=== PATIENT | male | born 1985 | race Two or more races ===

== ENCOUNTER 2016-12-12 14:13 | Emergency (ER) | payer BC ==
[2016-12-12 14:20] VITALS: BP 141/85
--- NOTE | 2016-12-12 14:59 | RAD ---
Indication injury. Pain. AP oblique and lateral views of the right ankle were obtained. There is soft tissue swelling over the lateral malleolus. No bony abnormality is seen.
[2016-12-12] MEDS ORDERED: NAPR500T8 PO (15:12)
--- NOTE | 2016-12-12 15:12 | PHYS DOC ---
Past Medical History Past Medical History: No Pertinent History Past Surgical History: No Surgical History Alcohol Use: Occasionally Drug Use: None Adult General Chief Complaint Chief Complaint: ANKLE PROBLEM HPI HPI Patient is a 31 year old male with no significant medical history who presents today with right ankle pain that began yesterday after he rolled his ankle getting off a ladder. Review of Systems Review of Systems Constitutional: Denies fever or chills [] Eyes: Denies change in visual acuity, redness, or eye pain [] Musculoskeletal: Right ankle pain Integument: Denies rash or skin lesions [] Neurologic: Denies headache, focal weakness or sensory changes [] Endocrine: Denies polyuria or polydipsia [] Allergies Allergies Allergies Coded Allergies Type Severity Reaction Last Updated Verified No Known Drug Allergies 12/12/16 No Physical Exam Physical Exam Constitutional: Well developed, well nourished, no acute distress, non-toxic appearance. [] HENT: Normocephalic, atraumatic, bilateral external ears normal, oropharynx moist, no oral exudates, nose normal. [] Eyes: PERRLA, EOMI, conjunctiva normal, no discharge. [] Skin: Warm, dry, no erythema, no rash. [] Back: No tenderness, no CVA tenderness. [] Extremities: Right ankle with mild amount of soft tissue swelling on the right lateral aspect. Full range of motion to the right ankle. Adequate sensation to the right ankle. +2 right pedal pulse. Cap refill less than 2 seconds the right lower extremity. Sensation intact to the right lower extremity. Neurologic: Alert and oriented X 3, normal motor function, normal sensory function, no focal deficits noted. [] Psychologic: Affect normal, judgement normal, mood normal. [] Current Patient Data Vital Signs Vital Signs Date Time Temp Pulse Resp B/P (MAP) Pulse Ox O2 Delivery O2 Flow Rate FiO2 12/12/16 14:20 98.3 90 16 100 Room Air 98.3 EKG EKG [] Radiology/Procedures Radiology/Procedures []PROCEDURE: ANKLE RIGHT 3V Indication injury. Pain. AP oblique and lateral views of the right ankle were obtained. There is soft tissue swelling over the lateral malleolus. No bony abnormality is seen. DICTATED and SIGNED BY: HSANNON ROONEY MD DATE: 12/12/16 3098 CC: CONNER TORRES APRN ~ Course & Med Decision Making Course & Med Decision Making Pertinent Labs and Imaging studies reviewed. (See chart for details) Patient is in the ED right ankle pain after rolling it yesterday. Right ankle x- rays interpreted by radiologist are negative for any acute findings. Patient has right ankle sprain. Patient was provided an Aircast applied by the ED RN, neurovascular exam done by eyes normal, cap refill less than 2 seconds. Ice elevation encouraged. Naproxen for pain. Follow-up with orthopedic doctor in one week. Dragon Disclaimer Dragon Disclaimer This electronic medical record was generated, in whole or in part, using a voice recognition dictation system. Departure Departure Impression: Primary Impression: Right ankle sprain Disposition: HOME, SELF-CARE Condition: STABLE Referrals: NO PCP (PCP) ASH TABOR MD Follow-up in one week Patient Instructions: Ankle Sprain, Acute, with Phase I Rehab-SportsMed Additional Instructions: You were seen for right ankle sprain. Ice and elevate the extremity. Take the prescribed medicines as needed for pain. Wear the air cast as tolerated. Follow- up with orthopedic doctor provided in one week if pain continues. Scripts Naproxen (NAPROXEN) 500 Mg Tablet.dr 1 TAB PO BID, #60 TAB 2 Refills Prov: CONNER TORRES APRN 12/12/16 Problem Qualifiers Primary Impression: Right ankle sprain Encounter type: initial encounter Involved ligament of ankle: unspecified ligament Qualified Codes: S93.401A - Sprain of unspecified ligament of right ankle, initial encounter CONNER TORRES APRN December 12, 2016 15:12
== END 2016-12-12 15:16 | disposition home or self-care (01) ==
LOC: MERGE 14:13 → ER 14:13
DX: S93.401A Sprain of unspecified ligament of right ankle, initial encounter (principal); X58.XXXA Exposure to other specified factors, initial encounter; Y93.89 Activity, other specified; Y92.89 Other specified places as the place of occurrence of the external cause; Y99.8 Other external cause status
CPT/HCPCS: 29515; 73610; 99284-25